=== PATIENT | male | born 1960 | race Caucasian/White ===

== ENCOUNTER → 2023-11-22 00:29 | Outpatient (CLI) | payer OTHER, SELFPAY ==
[2023-11-22 14:40] LABS: Estimated GFR 83.52 (mL/min/1.73m2)
[2023-11-22] MEDS: Omnipaque 350 MG/ML 100 ML BTL IJ (15:09)
[2023-11-22] MEDS: Normal Saline - Diluent 50 ML VIAL IJ (15:12)
--- NOTE | 2023-11-22 15:25 | DI.CT_ITS ---
Exam(s) CT HEAD WO/W EXAM: CT HEAD WO/W CLINICAL HISTORY: r/o mass; baseline eval pre-neuro eval. TECHNIQUE: Imaging Protocol: Axial computed tomography images with coronal and sagittal reformatted images were created and reviewed. CONTRAST MATERIAL: Intravenous: Omnipaque 350 Contrast volume:100 ml COMPARISON: No exams were available for comparison FINDINGS: Ventricles and Extra axial spaces: Normal in size and morphology for the patient's age. Hemorrhage: None. Cerebral parenchyma: Normal. Enhancement: No suspicious enhancement. Midline shift: None. Brainstem/Cerebellum: Normal. Calvarium: Normal. Visualized Paranasal sinuses/Mastoids: Clear. IMPRESSION: Normal CT scan of the head. RADIATION DOSE DELIVERED: 1,876.74mGy.cm Total DLP DATA REPOSITORY: All CT scans at this facility are submitted to the National Radiology Data Registry (NRDR) Dose Index Registry (DIR) with the [employer] ([employer]). RADIATION OPTIMIZATION: All CT scans at this facility use at least one of these dose optimization te chniques: automated exposure control; mA and/or kV adjustment per patient size (includes targeted exa ms where dose is matched to clinical indication); or iterative reconstruction.
== END ==
PROVIDERS: Family Medicine; PCP Student in an Organized Health Care Education/Training Program; Visit Provider Student in an Organized Health Care Education/Training Program
DX: R41.89 Other symptoms and signs involving cognitive functions and awareness (principal); R46.89 Other symptoms and signs involving appearance and behavior; R29.818 Other symptoms and signs involving the nervous system; Z01.812 Encounter for preprocedural laboratory examination
CPT/HCPCS: 70470; 82565; J3490